=== PATIENT | male | born 1940 | race Caucasian/White ===

== ENCOUNTER 2016-10-06 17:10 | Outpatient (CLI) | payer MEDICARE, OTHER | END 2016-10-06 17:11 | disposition critical access hospital (66) | DX: T14.90 Injury, unspecified (principal); W01.0XXA Fall on same level from slipping, tripping and stumbling without subsequent striking against object, initial encounter; Y93.01 Activity, walking, marching and hiking; Y92.480 Sidewalk as the place of occurrence of the external cause | CPT/HCPCS: A0425; A0429 ==

== ENCOUNTER 2016-10-06 17:30 | Emergency (ER) | payer MEDICARE, OTHER ==
[2016-10-06] MEDS ORDERED: TETANUS/DIPHTHERIA/PERTUSSIS 0.5 ML SYRINGE IM ONE ×2 (17:36→17:49)
== END 2016-10-06 19:41 | disposition home or self-care (01) ==
DX: S06.6X0A Traumatic subarachnoid hemorrhage without loss of consciousness, initial encounter (principal); S00.81XA Abrasion of other part of head, initial encounter; S60.221A Contusion of right hand, initial encounter; S60.511A Abrasion of right hand, initial encounter; W01.0XXA Fall on same level from slipping, tripping and stumbling without subsequent striking against object, initial encounter; Y93.01 Activity, walking, marching and hiking; Y92.480 Sidewalk as the place of occurrence of the external cause; Y99.8 Other external cause status; Z23 Encounter for immunization; F03.90 Unspecified dementia, unspecified severity, without behavioral disturbance, psychotic disturbance, mood disturbance, and anxiety; Z79.82 Long term (current) use of aspirin

== ENCOUNTER 2016-10-09 13:18 | Emergency (ER) | payer MEDICARE, OTHER ==
[2016-10-09] MEDS ORDERED: HYDROcod/ACETAM 5/325 MG TABLET PO STA (14:13)
[2016-10-09] MEDS ORDERED: HYDROcod/ACETAM 5/325 MG TABLET ONE (14:16)
== END 2016-10-09 15:58 | disposition home or self-care (01) ==
DX: S22.41XA Multiple fractures of ribs, right side, initial encounter for closed fracture (principal); W18.30XA Fall on same level, unspecified, initial encounter; M19.041 Primary osteoarthritis, right hand; F03.90 Unspecified dementia, unspecified severity, without behavioral disturbance, psychotic disturbance, mood disturbance, and anxiety; I10 Essential (primary) hypertension; E11.9 Type 2 diabetes mellitus without complications; Z79.84 Long term (current) use of oral hypoglycemic drugs; Z79.82 Long term (current) use of aspirin
CPT/HCPCS: 71101; 73130; 99283; A9270

== ENCOUNTER 2016-11-21 13:32 | Outpatient (CLI) | payer MEDICARE, OTHER | END 2016-11-21 13:33 | disposition home or self-care (01) | DX: R05 Cough (principal); R06.2 Wheezing; R50.9 Fever, unspecified ==

== ENCOUNTER 2017-11-14 14:56 | Outpatient (CLI) | payer MEDICARE, OTHER ==
--- NOTE | 2017-11-15 13:13 | XRAY Report ---
THREE VIEW LEFT ANKLE: 11/14/2017 CLINICAL INDICATION: Sprain, pain. FINDINGS: AP, lateral, and oblique views of the left ankle demonstrate soft tissue swelling. There is no evidence of acute fracture. Degenerative changes are present, with plantar and posterior calcaneal spurring. Vascular calcifications are noted. IMPRESSION: OSTEOARTHRITIS AND SOFT TISSUE SWELLING. NO EVIDENCE OF ACUTE FRACTURE. TD: 11/15/2017 13:12
== END 2017-11-14 14:57 | disposition home or self-care (01) ==
LOC: DI.N 14:56
PROVIDERS: ATTEND Internal Medicine
DX: S93.402A Sprain of unspecified ligament of left ankle, initial encounter (principal); M19.072 Primary osteoarthritis, left ankle and foot

== ENCOUNTER 2019-11-18 11:20 | Outpatient (CLI) | payer MEDICARE, OTHER ==
--- NOTE | 2019-11-18 18:46 | CONSULTATION NOTE ---
Palliative Care Consultation - Referral Referring Provider: Dr. Saeed Time of Visit: 8263-0135 Referral setting: Assisted living Referral Reason: General decline/Advanced Care Planning - Information Sources Records reviewed: Previous records reviewed History/Review of Systems obtained from: Family (spouse/DPOA Katerina), Caregiver, Nursing Exam limitations: Clinical condition (Advanced dementia) - History of Present Illness Brief History of Present Illness: This is a 79-year-old man who was seen and evaluated today for initial palliative care consultation due to recent increase in functional decline, advanced care planning, and symptom management. The patient has a history of Alzheimer's dementia. His /D POA reports that the patient was not receptive of the diagnosis of dementia and therefore there was never really any evidence of him being aware of his cognitive decline. His reports that he was evaluated by geriatric psychology at [facility] where he was formally diagnosed with Alzheimer's dementia. Since that time he has had a steady cognitive decline. However, due to his advanced studies and education he had previously retained knowledge that he was able to cover up his cognitive deficit before it became more apparent. The patient's reports that the patient has had a small subarachnoid hemorrhage in the past few years. She was offered a transfer to [facility] for the patient to have serial monitoring and declined with a goal to focus on comfort. The patient continue to find pleasure and quality of life after that incident. Last week the patient developed right-sided weakness with frequent falls. He sustained a fall on 11/04, 11/06, 11/07. On 11/05 a urine dipstick was performed and was negative for urinary tract infection in house.He is now having difficulty with ambulation and is no longer able to stand and pivot. He is requiring 2 person assistance. He potentially sustained a CVA. The patient's /D POA does not wish to have diagnostic imaging and would like the patient to be comfortable within the facility. He has been in a tilt in space wh eelchair and this has provided additional stability with decreased falls. Nursing staff is also requesting that the patient be evaluated for a hospital bed at this would assist with transferring and prevention of skin breakdown. Since the patient developed right-sided weakness he is not as engaged or talkative as he wants was per staff report. He is requiring increased assistance during meals. No noted coughing or choking episodes during meals or consumption of liquids. Medical/Surgical History - Past Medical History Cardiovascular: reports: Hypertension Respiratory: reports: None Neuro: Alzhiemer's, Other (subarachnoid hemorrhage) Neuro: reports: Alzhiemer's, Dementia Endocrine/Autoimmune: reports: Type 2 diabetes GI: reports: None : reports: Incontinence Musculoskeletal: reports: Osteoarthritis - Substance History Use: Uses substance without health or social issues: NONE Social History - Living Situation Living arrangement: Assisted living Support System: The patient resides in [facility]. The patient's /D PODestini Borges, resides in [place]. The patient and his do not have any children together. The patient's has a daughter from previous of relationship. 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 She retired sooner than she desired due to the patient's cognitive decline due to his Alzheimer's dementia. The patient attended [employer]. He grew up in [place], [place]. He taught calculus classes. He was working on a dissertation but did not finish it. He loves football and jazz. He was not a pet fan but since his got toxins he has come to love them and looks forward to having them visit. Family History - Family History Family History: Mother: , Father: Family History Comment/Other: Sister-Living Medications/Allergies - Medications Home Medications: Ambulatory Orders Medication Instructions Recorded Confirmed Acetaminophen 500 mg PO BID 11/18/19 11/18/19 Acetaminophen 500 mg PO Q6H PRN MDD NTE 3gram 11/18/19 11/18/19 daily Albuterol Sulfate [Albuterol 2 puffs IN Q4H PRN 11/18/19 11/18/19 Sulfate Hfa] Aspirin [Aspirin EC] 81 mg PO DAILY 11/18/19 11/18/19 Fluticasone [Flonase] 1 spray ÁLVARO DAILY 11/18/19 11/18/19 Hydrocodone/Acetaminophen 1 tab PO Q6H PRN 11/18/19 11/18/19 [Hydrocodone-Acetamin 5-325 mg] Lisinopril [Zestril] 40 mg PO DAILY 11/18/19 11/18/19 Loratadine [Allergy Relief] 10 mg PO DAILY PRN 11/18/19 11/18/19 Magnesium Hydroxide [Milk of DAILY PRN 11/18/19 Magnesia] Senna [Senokot] 8.6 mg PO QPM 11/18/19 11/18/19 Sodium Chloride [Saline Nasal 1 spray ÁLVARO BID PRN 11/18/19 11/18/19 [place]] Vitamin D 1,000 unit PO DAILY 11/18/19 hydroCHLOROthiazide 25 mg PO DAILY 11/18/19 11/18/19 [Hydrochlorothiazide] metFORMIN [Glucophage] 500 mg PO BID 11/18/19 11/18/19 - Allergies Allergies/Adverse Reactions: Allergies Allergy/AdvReac Type Severity Reaction Status Date / Time No Known Drug Allergies Allergy Verified 11/18/19 19:04 Review of Systems - Constitutional Constitutional: reports: Fatigue, Weight stable (weight 178.2lb presently; weight 173lb 10/26/2018) - Eyes Eyes: reports: Corrective lenses - Ears, Nose & Throat Ears, Nose & Throat: denies: Hearing loss - Cardiovascular Cardiovascular: denies: Palpitations, Chest pain - Respiratory Respiratory: denies: Cough, SOB at rest - Gastrointestinal Gastrointestinal: reports: Constipation (intermittent responds to MOM), Diarrhea, Good appetite. denies: Abdominal pain, Abdominal distention, Vomiting - Genitourinary Genitourinary: reports: Incontinence (intermittent which is recent as the patient has no longer been able to ambulate). denies: Dysuria - Musculoskeletal Musculoskeletal: reports: Muscle weakness, Joint pain, Assistive devices, Transfer issues - Integumentary Integumentary: reports: Dryness - Neurological Neurological: reports: General weakness, Memory problems. denies: Headache - Psychiatric Psychiatric: denies: Behavior disturbances - Endocrine Endocrine: reports: Diabetes type 2 - Hematologic/Lymphatic Hematologic/Lymphatic: denies: Recurrent infections - All Other Systems All Other Systems: reports: Reviewed and negative (ROS limited as patient is a poor historian due to dementia. ROS obtained from caregiver, nursing and .) Physical Exam - Vital Signs Pulse Rate: 58 Respiratory Rate: 16 O2 Saturation: 96 (on RA at rest) Blood Pressure: 141/68 (left wrist cuff) - Physical Exam General Appearance: positive: No acute distress, Alert, Other Eyes Bilateral: positive: PERRL, EOMI, Other (+corrective lenses) ENT: positive: No signs of dehydration Neck: positive: Trachea midline. negative: Lymphadenopathy (R), Lymphadenopathy (L) Cardiovascular: positive: Regular rate & rhythm, No murmur. negative: Systolic murmur Respiratory: positive: No respiratory distress, Breath sounds nml. negative: Wheezes, Rhonchi Abdomen: positive: Non-tender, Soft, Nml bowel sounds, Other (Round) Skin: positive: Dryness (generalized dryness to face and extremities) Extremities: positive: Pedal edema (trace BLE) Neurologic/Psychiatric: positive: Disoriented to place, Disoriented to time, Weakness, Flat affect, Other (noted decreased fundraising coordinator to RUE compared to LUE. Strenght: RUE 3/5; LUE 4/5; RLE 3/5; LLE 4/5. Visible leaning to right side. Facial symmetry symmetric. Patient could not follow commands to evalaute for pronator drift. Was minimally verbal during examination and would stop in his response.). negative: Facial droop Palliative Care - POLST Patient has POLST: Yes POLST Status: DNR, Comfort Measures Pain: Pain unchanged (History of osteoarthritis that responds to acetaminophen. Presently receiving routine acetaminophen for pain that is only to be administered for 3 days.) Anorexia: None Sleep: Sleeps well Constipation: Managed, Intermittent constipation Performance Status: Patient has had a sharp decline in his functional capabilities. He is no longer able to ambulate with his walker. He is no longer able to ambulate. He has di fficulty being able to stand and pivot with staff. He is presently a two-person assist. He is able to self feed if items are hand-held otherwise he requires staff assistance. No change in appetite. Recent frequent falls with no known injury. No coughing during meals. Dependent on staff for hygiene and ADLs. Previously the patient was continent of urine and since his stroke functional decline and right-sided weakness as he is no longer ambulatory he is now intermittently in continent of urine. - Palliative Care Discussion: The patient has had a sharp functional status change in the last week with evidence of right sided weakness on examination, no longer ambulatory, and decreased participation in conversations indicative of possibly likely a CVA. He presently remains on an 81 mg of aspirin. He has a history of a subarachnoid hemorrhage that was evident on imaging after he sustained a fall with head injury. Since he has been utilizing a tilt in space wheelchair that was loaned to him he has had resolution of his falls and increased comfort. Nursing staff is requesting evaluation for hospital bed and the patient to have a tilt in space wheelchair. Upon discussion with the patient's /D POA, Katerina given the clinical findings she is in agreement that the patient most likely suffered a CVA and she wishes to focus on comfort as much as possible. She does not wish to have the patient transported out to hospital for evaluation as this would lead to distress for the patient. As, Katerina is presently out of state and not able to travel due to the [place] virus pandemic this acute change has been difficult for her as she has not been able to come and be directly at the patient's side. She is looking forward to face timing the patient on Monday with the facility staff so that way she may see the patient since she cannot be present physically. She last saw the patient in March. Given history history of osteoarthritis she would like to have acetaminophen scheduled so the patient is not having any discomfort. Reviewed POLST with /Tony BARAJAS and no changes were made from 2017 patient to remain DN AR, comfort measures, antibiotic use with comfort as goal, no artificial nutrition by tube. Reviewed with /D POA given the patient's recent functional decline will see where he lands if he is able to rebound some of his functional status as his changes are still presently acute. Impression and Recommendations - Palliative Care Impression: This is a 79-year-old gentleman with a history of advanced Alzheimer's disease, hypertension, hyperlipidemia, with acute functional loss with right-sided weakness most likely indicative of a CVA. Patient remains on antiplatelet therapy 81 mg of aspirin daily. Goals at this time her main to focus on comfort. Palliative care to continue to provide pain and symptom management, exploration of goals of care, and anticipatory guidance. Recommendations/Counseling Done: 1. Right-sided weakness with functional decline. Patient most likely sustained a CVA with residual right-sided weakness and poor truncal stability. Unclear if he will have some improvement to baseline functional status. /D POA wishes to focus on comfort and does not wish to have any diagnostic imaging or int erventions. Patient is nonambulatory and is wheelchair dependent and is a 2 person assist for transfers with poor truncal stability. He would benefit from a tilt in space wheelchair and hospital bed with a face to face provided as noted below. 2. Hyperlipidemia. Reviewed primary prevention of atherosclerosis with time to benefit vs life expenctancy vs medication side effects with /DPOA, Katerina at length. Given the patient's age and co-morbidities would recommend discontinuation of statin therapy given the time to see the benefit of statin therapy and /DPOA in agreement for discontinuation of atorvastatin. 3. Alzheimer's Dementia. Chronic. Progressive. Supportive Care. Fall precautions. No behavioral concerns reported by staff. Presently on donepezil for over 6years with no noted change in slowly of cognitive decline reported by . Reviewed benefit vs burden of donepezil and after review will discontinue donepezil. D/c donepezil and start donepezil 5mg daily x 7 days then every other day x 7 days then discontinue for gradual dose reduction before discontinuation to limit side effects. Given the patient's dementia and chronic co- morbidities, a gradual decline is expected. 4. Osteoarthritis. Presently denies pain but is on standing acetaminophen. D/c present acetaminophen orders on record. Start acetaminophen 500mg BID and 500mg every 6 hours as needed for pain not to exceed 3gram daily from all sources. CTM. 5. Constipation. Start senna 8.6mg nightly and hold for loose stools. 6. Advanced care planning. POLST is DNR and comfort care with focus on quality of life. Reviewed medications with /DPOA and to discontinue fish oil and vitamin C supplementation to reduce pill burden. Palliative care to continue to provide support for patient and family as it is not feasible for the patient to leave their present setting. Face to Face: Patient requires a tilt in space wheelchair as he is no longer ambulatory and dependent for all transfers. He is a two person assist. He is unable to reposition in bed or in the wheelchair and requires repositioning by staff. He is wheelchair bound and unable to self-propel. He has poor truncal support and is leaning to the right side. He requires a tilt in space wheelchair with cushion for truncal stability, reducing fall risk, reduction of risk of skin breakdown and to aid in improving the patient's ADLs. Patient requires frequent body positioning due to history of CVA and is not feasible with an ordinary bed and requires a hospital bed. Time Spent: CPT 21330 Plan of care reviewed with nursing staff. Plan of care reviewed at length with /D JENN Borges (contact number [phone]), palliative care philosophy, care coordination, review of medications with dose and side effects, goals of care and provided anticipatory guidance. disclaimer: The chart note was formulated using voice recognition technology and unfortunately sound alike errors may occur.
== END 2019-11-18 11:21 | disposition home or self-care (01) ==
LOC: PC 11:20
PROVIDERS: ATTEND Nurse Practitioner Family
DX: Z51.5 Encounter for palliative care (principal); G30.9 Alzheimer's disease, unspecified; F02.80 Dementia in other diseases classified elsewhere, unspecified severity, without behavioral disturbance, psychotic disturbance, mood disturbance, and anxiety; M62.81 Muscle weakness (generalized); R41.89 Other symptoms and signs involving cognitive functions and awareness; R32 Unspecified urinary incontinence; K59.00 Constipation, unspecified; E11.9 Type 2 diabetes mellitus without complications; M19.90 Unspecified osteoarthritis, unspecified site; E78.5 Hyperlipidemia, unspecified; Z79.899 Other long term (current) drug therapy; Z79.84 Long term (current) use of oral hypoglycemic drugs; Z79.82 Long term (current) use of aspirin; Z87.820 Personal history of traumatic brain injury; Z99.3 Dependence on wheelchair; Z91.81 History of falling; Z66 Do not resuscitate

== ENCOUNTER 2019-12-20 11:50 | Outpatient (CLI) | payer MEDICARE, OTHER ==
--- NOTE | 2019-12-20 16:58 | CONSULTATION NOTE ---
Palliative Care Follow Up - Referral Referring Provider: Dr. Saeed Time of Visit: 4292-1552 Referral setting: Assisted living Referral Reason: Dementia/Weakness - Information Sources Records reviewed: Previous records reviewed History/Review of Systems obtained from: Patient, Family (spouse/ROSA Borges via phone), Caregiver, Nursing Exam limitations: Clinical condition (Advanced dementia) - History of Present Illness Update Brief HPI Update: This is a 79-year-old gentleman who was seen in follow-up today at [facility] due to generalized weakness and Alzheimer's dementia. The patient has had generalized weakness specifically to the right side since October 2019. He has a history of having a subarachnoid hemorrhage in the last several years. He potentially sustained a CVA that has resulted in functional deficits. He is no longer ambulatory. He is presently in a new tilt in space wheelchair that was obtained for him and has been doing quite well on this. This has decreased his number of falls since the use of the specific wheelchair. He has sustained 2 falls one on 12/01 in an assisted fall on 12/14 that resulted in a small skin tear. He continues to require assistance during meals and is typically being fed. No noted coughing or choking episodes during meals or consumption of liquids. Staff report that he eats everything that he is offered during his meals and he does have adapted devices to his utensils in the attempt to encourage him to feed himself. He has had a weight loss trend from 185lb to 175.6lb presently. His reports that when he was exercising and had a healthy diet several years ago his optimal weight was appx 150lb. On last evaluation the patient was started on acetaminophen 500 mg routinely for pain related to osteoarthritis.Patient has tolerated this well and there has been no physical demonstration of discomfort per staff report. When last evaluation the patient had evidence of constipation without routine bowel movements. He was initiated on senna daily and is typically defecating every 2 to 3 days. The patient himself denies any nausea, vomiting, or abdominal pain. Patient has a history of Alzheimer's dementia, osteoarthritis, constipation, subarachnoid hemorrhage, hypertension, type 2 diabetes, urinary incontinence. Social History - Living Situation Living arrangement: Assisted living Support System: The patient resides in [facility]. The patient's /D JENN Borges, resides in [place]. The patient and his do not have any children together. The patient and his have been for 29 years. 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 He loves their dachshunds and enjoys when they visit. Medications/Allergies - Medications Home Medications: Ambulatory Orders Medication Instructions Recorded Confirmed Acetaminophen 500 mg PO BID 11/18/19 11/18/19 Acetaminophen 500 mg PO Q6H PRN MDD NTE 3gram 11/18/19 11/18/19 daily Albuterol Sulfate [Albuterol 2 puffs IN Q4H PRN 11/18/19 11/18/19 Sulfate Hfa] Aspirin [Aspirin EC] 81 mg PO DAILY 11/18/19 11/18/19 Fluticasone [Flonase] 1 spray ÁLVARO DAILY 11/18/19 11/18/19 Hydrocodone/Acetaminophen 1 tab PO Q6H PRN 11/18/19 11/18/19 [Hydrocodone-Acetamin 5-325 mg] Lisinopril [Zestril] 40 mg PO DAILY 11/18/19 11/18/19 Loratadine [Allergy Relief] 10 mg PO DAILY PRN 11/18/19 11/18/19 Magnesium Hydroxide [Milk of DAILY PRN 11/18/19 Magnesia] Senna [Senokot] 8.6 mg PO QPM 11/18/19 11/18/19 Sodium Chloride [Saline Nasal 1 spray ÁLVARO BID PRN 11/18/19 11/18/19 [place]] Vitamin D 1,000 unit PO DAILY 11/18/19 hydroCHLOROthiazide 25 mg PO DAILY 11/18/19 11/18/19 [Hydrochlorothiazide] metFORMIN [Glucophage] 500 mg PO BID 11/18/19 11/18/19 - Allergies Allergies/Adverse Reactions: Allergies Allergy/AdvReac Type Severity Reaction Status Date / Time No Known Drug Allergies Allergy Verified 11/18/19 19:04 Review of Systems - Constitutional Constitutional: reports: Weight loss (weight 175.6lb). denies: Fever - Eyes Eyes: reports: Corrective lenses - Ears, Nose & Throat Ears, Nose & Throat: denies: Hearing loss - Cardiovascular Cardiovascular: denies: Chest pain - Respiratory Respiratory: denies: Cough, Wheezing - Gastrointestinal Gastrointestinal: reports: Constipation, Good appetite. denies: Abdominal pain, Diarrhea, Vomiting - Genitourinary Genitourinary: reports: Incontinence. denies: Dysuria - Musculoskeletal Musculoskeletal: reports: Assistive devices, Transfer issues. denies: Joint pain - Integumentary Integumentary: reports: Other (scab to right elbow) - Neurological Neurological: reports: General weakness, Memory problems - Psychiatric Psychiatric: denies: Behavior disturbances - Endocrine Endocrine: reports: Diabetes type 2 - All Other Systems All Other Systems: reports: Reviewed and negative (ROS limited as patient is a poor historian due to dementia. ROS obtained from caregiver and nursing staff) Physical Exam - Vital Signs Temperature: 36.6 C Pulse Rate: 67 O2 Saturation: 94 (on RA) Blood Pressure: 148/83 (left wrist cuff) - Physical Exam General Appearance: positive: No acute distress, Alert, Other (sitting up OOB in tilt in space wheelchair that appears to fit him quite well and posture is upright) Eyes Bilateral: positive: Other (+corrective lenses) ENT: positive: No signs of dehydration Neck: positive: No JVD, Trachea midline Cardiovascular: positive: Regular rate & rhythm, No murmur Respiratory: positive: No respiratory distress, Breath sounds nml Abdomen: positive: Non-tender, Soft, Nml bowel sounds, Obese, Other (bladder nondistended to palpation) Skin: positive: Other (scab to right elbow--resolving) Extremities: positive: Pedal edema (trace BLE edema) Neurologic/Psychiatric: positive: Disoriented to place, Disoriented to time, Weakness (noted more to the right side; has facial symmetry; some word finding difficulty noted), Flat affect. negative: Depressed mood/affect Palliative Care - POLST Patient has POLST: Yes POLST Status: DNR, Comfort Measures Pain: No pain (on routine tylenol for OA pain) Nausea: None Sleep: Sleeps well Constipation: Yes, Managed Performance Status: Patient is no longer Able to ambulate and uses a tilt in space wheelchair. He has poor truncal stability therefore requiring the tilt in space wheelchair. He has noted weakness more specifically on the right side. He is a two-person assist. He is able to self feed if items are hand-held but otherwise he requires staff assistance despite adaptive utensils. Dependent on staff for hygiene and all ADLs. Incontinent of urine. Nhan Index: * Population: senior care adults aged 65 and older * Outcome: 6 month survival Risk calculators cannot predict the future for any one individual. Risk calculators give an estimate of how many people with similar risk factors will live and , but they cannot identify who will live and who will . Risk of 6 month mortality 28% The index was developed and internally validated in [id number] prison residents (49% of subjects were between 80 and 90 years, 23% were male, 84% were white). The index was externally validated in 606 prison residents with advanced dementia in 21 nursing homes in [place], [place] between 2006 and 2008 (39% were 85 and younger, 82% female) Discrimination: This risk calculator sorts patients who from patients who lived correctly 67% of the time (c- statistic, 95% CI, 0.62-0.72). - Palliative Care Discussion: Patient has had a recent sharp functional status change with decline in October 2019 likely related to an event such as a CVA. The patient himself does have a history of a subarachnoid hemorrhage during. He is now in a different tilt in space wheelchair that appears to fit him adequately and he is comfortable with proper truncal support and is no longer leaning to his right side. The patient continues to have a good oral intake despite a noted weight loss which could potentially be attributed to some mild lower extremity edema with some fluctuations in that as well as progression of his dementia. The patient is presently on routine acetaminophen and has had no evidence of discomfort or distress reported by the staff and has tolerated this well. The patient's /DPOA wishes to focus on comfort as much as possible Impression and Recommendations - Palliative Care Impression: This is a 79-year-old gentleman with a history advanced Alzheimer's disease, hypertension, hyperlipidemia with a recent sharp functional decline indicative of an acute event such as a CVA. Patient has a history of osteoarthritis and any joint complaints are controlled with routine acetaminophen. Palliative care to continue to provide pain and symptom management, anticipatory guidance with a focus on comfort level of care. Recommendations/Counseling Done: 1. Weight loss. Weight presently 175.6lb. Some of the reported weight loss may be attributable to fluctuations in lower extremity edema. Patient presently only has trace amounts of lower extremity edema on examination. He continues on HCTZ daily. Request that meal monitoring be performed with documentation of percent consumed. Continue weekly weights to monitor weight trends. 2. Type 2 diabetes mellitus. Last hemoglobin A1c not available. Patient continues with a robust appetite that requires assistance during mealtimes. Continue metformin 500 mg twice daily. Consider dose reduction of metformin if patient has a decline in oral intake. Consider obtainment of hemoglobin A1c at next follow-up. 3. Functional decline with generalized weakness. 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 Goal is to focus on comfort measures. Patient is nonambulatory and is wheelchair dependent. He has had benefit from a tilt in space wheelchair for truncal stability and to be able to have social interactions with in the common space of the facility and adjustments during mealtimes. 4. Osteoarthritis. Patient denies any reports of acute pain. Continue acetaminophen 500 mg twice daily 5 mg every 6 hours as needed for pain not to exceed 3 g daily from all sources. Continue to monitor. 5. Alzheimer's dementia. Chronic. Progressive. Supportive care. Fall precautions. No evidence of aspiration on examination during lunchtime today. No behavioral concerns reported by staff. Has been tapered off donepezil with no change in behaviors reported by staff. Given the patient's dementia and chronic comorbidities a gradual decline as expected. 6. Constipation. Improved. Continue senna 8.6mg nightly as ordered. No recent use of MOM. Monitor bowel regimen and adjust as needed. 7. HTN with BLE edema. No cardiac awareness. Continue HCTZ and lisinopril as ordered. Continue ASA 81mg daily for cardiac prophylaxis. Continue to monitor BP trends and adjust antihypertensive medications as needed. 8. Advanced Care Planning. POLST DNAR with comfort measures. Goal per /DPOA is to focus on quality of life. Time Spent: CPT 21113 Plan of care reviewed with nursing staff. Plan of care reviewed at length with /D JENN Borges ([phone] (review of present clinical status, goals of care and provided anticipatory guidance. Disclaimer: The chart note was formulated using voice recognition technology and unfortunately sound alike errors may occur.
== END 2019-12-20 11:51 | disposition home or self-care (01) ==
LOC: PC 11:50
PROVIDERS: ATTEND Nurse Practitioner Family
DX: Z51.5 Encounter for palliative care (principal); R53.1 Weakness; M19.90 Unspecified osteoarthritis, unspecified site; K59.00 Constipation, unspecified; R63.4 Abnormal weight loss; G30.9 Alzheimer's disease, unspecified; F02.80 Dementia in other diseases classified elsewhere, unspecified severity, without behavioral disturbance, psychotic disturbance, mood disturbance, and anxiety; R32 Unspecified urinary incontinence; R60.0 Localized edema; I10 Essential (primary) hypertension; E11.9 Type 2 diabetes mellitus without complications; Z79.899 Other long term (current) drug therapy; Z79.82 Long term (current) use of aspirin; Z79.84 Long term (current) use of oral hypoglycemic drugs; Z86.79 Personal history of other diseases of the circulatory system; Z99.3 Dependence on wheelchair; Z66 Do not resuscitate

== ENCOUNTER 2020-02-06 10:30 | Outpatient (CLI) | payer MEDICARE, OTHER ==
--- NOTE | 2020-02-06 13:45 | CONSULTATION NOTE ---
Palliative Care Follow Up - Referral Referring Provider: Dr. Gabriele Saeed Time of Visit: [id number] Referral setting: Assisted living Referral Reason: Change in mental status/Dementia - Information Sources Records reviewed: Previous records reviewed History/Review of Systems obtained from: Patient, Caregiver, Nursing Exam limitations: Clinical condition (Advanced dementia.) - History of Present Illness Update Brief HPI Update: This is a 79-year-old gentleman who was seen in follow-up today at [facility] memory care unit due to recent altered mental status this week, and follow-up of osteoarthritic pain and Alzheimer's dementia. On 02/03/2020 at the patient sustained and nonresponsive episode and was able to be aroused through a sternal rub. He was drowsy for some time during that day and eventually returned back to baseline. On the initial event the patient was noted to have some increased difficulty with his left side. He has had right- sided weakness since the spring 2019 potentially due to a CVA. The patient has a history of a subarachnoid hemorrhage in the past several years. Today the facility staff reports that the patient is back to baseline. He remains afebrile. He is on routine vital signs at the present time for monitoring with blood pressure range 131-132/67-79. He presently remains on aspirin 81 mg daily. The patient is presently on acetaminophen 500 mg twice daily for pain related to his osteoarthritis. He has tolerated this well. Staff deny reports of any noted increased pain. Patient is seen out of bed and tilt in space wheelchair in the common area. He is easily engaged demonstrating no signs or symptoms of distress. Patient has a history of Alzheimer's dementia, osteoarthritis, constipation, hypertension, diabetes mellitus type 2, urinary incontinence, subarachnoid hemorrhage. Social History - Living Situation Living arrangement: Assisted living Support System: Patient resident memory care unit. The patient's /D ALLYSONKaterina Georges resides in [place]. The patient and his do not have any children together. 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 The patient and his have been for 29 years. Katerina is a retired ICU nurse. Next contact number is [phone]. Medications/Allergies - Medications Home Medications: Ambulatory Orders Medication Instructions Recorded Confirmed Acetaminophen 500 mg PO BID 11/18/19 11/18/19 Acetaminophen 500 mg PO Q6H PRN MDD NTE 3gram 11/18/19 11/18/19 daily Albuterol Sulfate [Albuterol 2 puffs IN Q4H PRN 11/18/19 11/18/19 Sulfate Hfa] Aspirin [Aspirin EC] 81 mg PO DAILY 11/18/19 11/18/19 Fluticasone [Flonase] 1 spray ÁLVARO DAILY 11/18/19 11/18/19 Hydrocodone/Acetaminophen 1 tab PO Q6H PRN 11/18/19 11/18/19 [Hydrocodone-Acetamin 5-325 mg] Lisinopril [Zestril] 40 mg PO DAILY 11/18/19 11/18/19 Loratadine [Allergy Relief] 10 mg PO DAILY PRN 11/18/19 11/18/19 Magnesium Hydroxide [Milk of DAILY PRN 11/18/19 Magnesia] Senna [Senokot] 8.6 mg PO QPM 11/18/19 11/18/19 Sodium Chloride [Saline Nasal 1 spray ÁLVARO BID PRN 11/18/19 11/18/19 [place]] Vitamin D 1,000 unit PO DAILY 11/18/19 hydroCHLOROthiazide 25 mg PO DAILY 11/18/19 11/18/19 [Hydrochlorothiazide] metFORMIN [Glucophage] 500 mg PO BID 11/18/19 11/18/19 Bisacodyl Supp [Dulcolax Supp] 10 mg TN Q72H PRN 12/25/19 12/25/19 polyethylene glycoL 3350 [Miralax] 17 g PO DAILY 12/25/19 12/25/19 - Allergies Allergies/Adverse Reactions: Allergies Allergy/AdvReac Type Severity Reaction Status Date / Time No Known Drug Allergies Allergy Verified 11/18/19 19:04 Review of Systems - Constitutional Constitutional: denies: Fever, Poor appetite - Eyes Eyes: reports: Corrective lenses - Ears, Nose & Throat Ears, Nose & Throat: denies: Hearing loss - Cardiovascular Cardiovascular: denies: Palpitations, Chest pain - Respiratory Respiratory: denies: Cough, SOB at rest - Gastrointestinal Gastrointestinal: reports: Constipation (controlled presently), Good appetite. denies: Abdominal pain, Abdominal distention, Diarrhea - Genitourinary Genitourinary: reports: Incontinence. denies: Dysuria - Musculoskeletal Musculoskeletal: reports: Muscle weakness, Assistive devices, Transfer issues. denies: Joint pain - Integumentary Integumentary: reports: Dryness - Neurological Neurological: reports: General weakness, Focal weakness (right sided weakness since Spring 2019 and recent left sided weakness that resolved, see HPI for additional details), Memory problems - Psychiatric Psychiatric: denies: Behavior disturbances - Endocrine Endocrine: reports: Diabetes type 2 - All Other Systems All Other Systems: reports: Reviewed and negative (ROS limited as patient is a poor historian due to dementia. ROS obtained from caregiver and family.) Physical Exam - Vital Signs Temperature: 36.6 C Pulse Rate: 62 O2 Saturation: 95 (on RA at rest) Blood Pressure: 125/74 (left wrist cuff) - Physical Exam General Appearance: positive: No acute distress, Alert, Other (OOB in tilt in space wheelchair, well groomed) Eyes Bilateral: positive: Normal inspection, PERRL (appears to be PERRL though difficult for patient to keep his eyes open when light used despite encouragement) ENT: positive: Other (No signs of dehydration) Neck: positive: Trachea midline Cardiovascular: positive: Regular rate & rhythm, No murmur Respiratory: positive: No respiratory distress, Breath sounds nml Abdomen: positive: Non-tender, Soft, Nml bowel sounds, Obese Skin: positive: Other (visible skin intact) Extremities: positive: Pedal edema (trace BLE edema) Neurologic/Psychiatric: positive: Disoriented to place, Disoriented to time, Weakness (noted on the right side), Flat affect, Other (+word finding diffculty noted; has facail symmetry; able to follow some simple commands). negative: Facial droop Palliative Care - POLST Patient has POLST: Yes POLST Status: DNR, Comfort Measures Pain: No pain (on routine tylenol for OA pain) Sleep: Sleeps well Constipation: Yes, Managed Performance Status: Patient is nonambulatory and uses a tilt in space wheelchair which has been providing truncal support. He has noted generalized weakness more specifically on the right side. He is a two-person assist. He is able to self feed if items are hand-held otherwise he requires staff assistance despite adaptive utensils. Dependent on staff for hygiene and all ADLs. Incontinent of urine. F AST 7C - Palliative Care Discussion: Noted on 02/03/2020 the patient had an unresponsive episode with left-sided weakness that has subsequently resolved. Also in the spring 2019 the patient began experiencing a sharp functional status change likely related to an event such as a CVA. Since his most recent unresponsive episode with left-sided weakness resolved he likely sustained a TIA. The patient does have a history of subarachnoid hemorrhage in the remote past. He presently is on aspirin therapy for cardiac protection and stroke prophylaxis. The patient's /D POA, verbalizes understanding in regards to the patient subsequently likely sustained a TIA and this places him at risk for a stroke event. She does not wish for any further interventions and wishes to focus on comfort and quality of life for the patient. Impression and Recommendations - Palliative Care Impression: This is 79-year-old gentleman with a recent unresponsive episode with left sided weakness that has resolved Likely indicative of a TIA. He has had a sharp functional decline in the spring 2019 likely due to acute event such as a CVA. The patient remains on aspirin 81 mg daily. The patient's wishes to focus on quality of life and symptom management given the patient's advanced Alzheimer's disease.Palliative care to continue to provide pain and symptom management, anticipatory guidance with a focus on comfort level care. Recommendations/Counseling Done: 1. TIA. suspect given the history and description of the unresponsive event with left sided weakness that has resolved that the patient likely sustained a TIA. He no longer has any residual neuro deficits from this event. Continue ASA 81mg daily for prophylaxis and in agreement. Goals are to focus on comfort and avoid hospitalization. Continue to monitor. 2. Osteoarthritis. Patient denies reports of acute pain. Continue acetaminophen 5 mg twice daily and 500 mg every 6 hours as needed for pain not to exceed 3 g daily from all sources. Continue to monitor. 3. Right-sided weakness with functional decline. Noted in spring 2019 likely attributable to CVA with residual weakness. Patient's /D POA wishes to focus on comfort measures. Patient has a tilt in space wheelchair for truncal stability that he has benefited from. He is presently nonambulatory and wheelchair dependent. 4.Type 2 diabetes mellitus. No results of hemoglobin A1c available. Patient continues with a robust appetite. Continue metformin 500 mg twice daily. Consider obtainment of hemoglobin A1c on next evaluation. Consider dose reduction of metformin if the patient has a decline in his oral intake. 5. Alzheimer's dementia. Chronic. Progressive. Supportive care. Fall precautions. No reports of dysphasia. Has been tapered off [place] Prill and no longer on disease modifying medications. No behavioral concerns reported by staff. Given the patient's dementia and chronic comorbidities a gradual decline is expected. Time Spent: CPT 56960 Plan of care reviewed with nursing staff. Plan of care reviewed with /D JENN Borges at [phone] regarding patient's clinical status and presentation provided supportive listening, and in agreement with plan of care with a focus on quality of life and comfort measures. Disclaimer: The chart note was formulated using voice recognition technology and unfortunately sound alike errors may occur.
== END 2020-02-06 10:31 | disposition home or self-care (01) ==
LOC: PC 10:30
PROVIDERS: ATTEND Nurse Practitioner Family
DX: Z51.5 Encounter for palliative care (principal); G30.9 Alzheimer's disease, unspecified; F02.81 Dementia in other diseases classified elsewhere, unspecified severity, with behavioral disturbance; M19.90 Unspecified osteoarthritis, unspecified site; E11.9 Type 2 diabetes mellitus without complications; R32 Unspecified urinary incontinence; R53.1 Weakness; Z74.09 Other reduced mobility; Z99.3 Dependence on wheelchair; H54.7 Unspecified visual loss; Z66 Do not resuscitate; Z79.82 Long term (current) use of aspirin; Z79.891 Long term (current) use of opiate analgesic; Z79.84 Long term (current) use of oral hypoglycemic drugs; Z79.899 Other long term (current) drug therapy

== ENCOUNTER 2020-04-21 08:30 | Outpatient (CLI) | payer MEDICARE, OTHER ==
--- NOTE | 2020-04-21 12:39 | CONSULTATION NOTE ---
Palliative Care Follow Up - Referral Referring Provider: Dr. Saeed Time of Visit: 7195-2541 Referral setting: Assisted living Referral Reason: Debility/Alizheimer's dementia/Scalp changes - Information Sources Records reviewed: Previous records reviewed History/Review of Systems obtained from: Patient, Caregiver, Nursing Exam limitations: Clinical condition (Advanced dementia) - History of Present Illness Update Brief HPI Update: This is a 79-year-old gentleman who was seen in follow-up today at [facility] at the request of physical therapy on site for a [id number] for the patient to have a evaluation for an appropriately fitting tilt in space wheelchair and follow-up regarding Alzheimer's dementia and scalp changes. 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 He continues to have residual right-sided weakness. He does have a history of subarachnoid hemorrhage that was sustained in the past several years. He continues on aspirin 81 mg daily. The patient presently is nonambulatory. He requires frequent repositioning and is limited truncal support. He presently has a tilt in space wheelchair that was donated but does not fit him adequately. He is requiring increased assistance by staff as he is no longer able to feed himself. His weight remains stable. No recent falls. The staff noticed increased flakiness to the patient's scalp. He denies any pruritus. His , make reports that the patient has had a problem with this in the past. The patient is seen in a tilt in space wheelchair at the dining table. He is being assisted with breakfast. Easily engaged with no evidence of distress. Patient has a past medical history of Alzheimer's dementia, osteoarthritis, constipation, hypertension, diabetes mellitus type 2, urinary incontinence, subarachnoid hemorrhage, questionable CVA/TIA. Social History - Living Situation Living arrangement: Assisted living Support System: Patient resides in [facility] unit. The patient's /D Katerina BARAJAS resides in [place]. The patient and his do not have any children together. 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 The patient his have been for 29 years. Katerina is a retired ICU nurse. Next contact number is [phone]. Make plans to come and visit the patient at the beginning of April 2020 for a few days. It has been several months since she has seen the patient due to the coronavirus pandemic. Medications/Allergies - Medications Home Medications: Ambulatory Orders Medication Instructions Recorded Confirmed Acetaminophen 500 mg PO BID 11/18/19 11/18/19 Acetaminophen 500 mg PO Q6H PRN MDD NTE 3gram 11/18/19 11/18/19 daily Albuterol Sulfate [Albuterol 2 puffs IN Q4H PRN 11/18/19 11/18/19 Sulfate Hfa] Aspirin [Aspirin EC] 81 mg PO DAILY 11/18/19 11/18/19 Fluticasone [Flonase] 1 spray ÁLVARO DAILY 11/18/19 11/18/19 Hydrocodone/Acetaminophen 1 tab PO Q6H PRN 11/18/19 11/18/19 [Hydrocodone-Acetamin 5-325 mg] Lisinopril [Zestril] 40 mg PO DAILY 11/18/19 11/18/19 Loratadine [Allergy Relief] 10 mg PO DAILY PRN 11/18/19 11/18/19 Magnesium Hydroxide [Milk of DAILY PRN 11/18/19 Magnesia] Senna [Senokot] 8.6 mg PO QPM 11/18/19 11/18/19 Sodium Chloride [Saline Nasal 1 spray ÁLVARO BID PRN 11/18/19 11/18/19 [place]] Vitamin D 1,000 unit PO DAILY 11/18/19 hydroCHLOROthiazide 25 mg PO DAILY 11/18/19 11/18/19 [Hydrochlorothiazide] metFORMIN [Glucophage] 500 mg PO BID 11/18/19 11/18/19 Bisacodyl Supp [Dulcolax Supp] 10 mg NM Q72H PRN 12/25/19 12/25/19 polyethylene glycoL 3350 [Miralax] 17 g PO DAILY 12/25/19 12/25/19 - Allergies Allergies/Adverse Reactions: Allergies Allergy/AdvReac Type Severity Reaction Status Date / Time No Known Drug Allergies Allergy Verified 11/18/19 19:04 Review of Systems - Constitutional Constitutional: reports: Weight stable. denies: Fever - Eyes Eyes: reports: Corrective lenses - Ears, Nose & Throat Ears, Nose & Throat: denies: Hearing loss - Cardiovascular Cardiovascular: denies: Palpitations, Chest pain - Respiratory Respiratory: denies: Cough, SOB at rest - Gastrointestinal Gastrointestinal: reports: Good appetite (requires assistance with meals; intermittently biting his tongue s/p MOLDING MACHINE OPERATOR onsite evaluation). denies: Constipation (controlled), Vomiting - Genitourinary Genitourinary: reports: Incontinence - Musculoskeletal Musculoskeletal: reports: Muscle weakness, Assistive devices, Transfer issues. denies: Joint pain - Integumentary Integumentary: reports: Other (papules noted to forehead and dry, flaky scalp diffuse consistent with seborrheic dermatitis). denies: Pruritis - Neurological Neurological: reports: General weakness, Memory problems - Psychiatric Psychiatric: denies: Behavior disturbances - Endocrine Endocrine: reports: Diabetes type 2 - All Other Systems All Other Systems: reports: Reviewed and negative (Review of systems is limited as patient is a poor historian due to dementia. Review of systems obtained from caregivers and nursing staff.) Physical Exam - Vital Signs Temperature: 36.6 C Pulse Rate: 69 O2 Saturation: 96 (on RA at rest) Blood Pressure: 161/77 (left wrist cuff) - Physical Exam General Appearance: positive: No acute distress, Alert, Other (OOB in tilt in space wheelchair) Eyes Bilateral: positive: Normal inspection ENT: positive: No signs of dehydration Neck: positive: Trachea midline Cardiovascular: positive: Regular rate & rhythm, No murmur Respiratory: positive: No respiratory distress, Breath sounds nml. negative: Rales Abdomen: positive: Non-tender, Soft, Nml bowel sounds, Obese Skin: positive: Other (papules noted to forehead and dry, flakiness to scalp consistent with seborrhiec dermatitis) Extremities: positive: No pedal edema Neurologic/Psychiatric: positive: Disoriented to place, Disoriented to time, Weakness (noted on the right side), Flat affect, Other (+word finding diffculty noted; able to follow some simple commands). negative: Facial droop Palliative Care - POLST Patient has POLST: Yes POLST Status: DNR, Comfort Measures Performance Status: Patient is nonambulatory and uses donated tilt in space wheelchair. He is unable to provide truncal support. Generalized weakness more specifically on the right side. No longer able to self feed and requires staff assistance. Dependent on staff for hygiene and all ADLs. Incontinent of urine. FAST 7C - Palliative Care Discussion: Patient is having difficulty remaining in an upright posture in his wheelchair, no noted weight loss and requires assistance with feeding. A tilt in space wheelchair would improve the patient's positioning, support, and transportation for the patient to participate in activities as well as reduce fall risk and skin breakdown. Goals remain to focus on comfort and quality of life issues with palliative care to continue to provide support until appropriate for hospice. Impression and Recommendations - Palliative Care Impression: This is a 79 year old gentleman with continued functional and cognitive decline due to advanced dementia and likely CVA/TIA, FAST 7C. Goals for focus on comfort. Palliative care to continue to provide support, symptom management and anticipatory guidance with a transition to hospice when appropriate. Recommendations/Counseling Done: 1. Generalized weakness. Secondary to disease state of dementia and possible history of TIA. Patient is nonambulatory and is wheelchair dependent with poor truncal stability. Present tilt in space wheelchair per physical therapy is not an appropriate fit and would benefit from a tilt in space wheelchair properly fitted for him. Please see [id number] provided below. 2.History of TIA and CVA. Continue aspirin 81 mg daily for prophylaxis. Continues with noted right-sided weakness. 3. Seborrheic dermatitis. Noted to the patient's forehead and scalp. Initiate ketoconazole 2% shampoo applied to scalp and forehead twice a week until resolved. 4.Alzheimer's dementia. Chronic. Progressive. Supportive care. Fall precautions. Recent reports of patient biting tongue status post MOLDING MACHINE OPERATOR evaluation on site. No longer on disease modifying agents. No behavioral concerns noted by staff. Continues with a functional and cognitive decline without any noted weight loss. He requires assistance with meals. We will continue to monitor for appropriate transition for hospice services. Given the patient's dementia and chronic morbidities a gradual decline as expected. Face to Face: Patient requires a tilt in space wheelchair as he is no longer ambulatory and dependent for all transfers. He is unable to reposition in bed or in the wheelchair and requires repositioning by staff. He is wheelchair bound and unable to self-propel. He has limited truncal support and right sided weakness. He requires a tilt in space wheelchair for truncal stability, reducing fall risk, reduction of risk of skin breakdown and to aid in improving the patient's ADLs. Time Spent: Total time spent 22 minutes with greater than 50% of this spent in counseling and coordination of care with nursing and caregiver staff, review of pain and symptom management and anticipatory guidance. Contacted patient's , Katerina [phone] regarding recommendations and in agreement. However, she wishes to have LAVELLE Mcgrath Director weigh in regarding moving forward with a tilt in space wheelchair and relayed to Ramila who ag alessandro with fitted tilt in space wheelchair and will f/u with /DPOA. Disclaimer: The chart note was formulated using voice recognition technology and unfortunately sound alike errors may occur.
== END 2020-04-21 08:31 | disposition home or self-care (01) ==
LOC: PC 08:30
PROVIDERS: ATTEND Nurse Practitioner Family
DX: Z51.5 Encounter for palliative care (principal); R53.1 Weakness; G30.9 Alzheimer's disease, unspecified; F02.80 Dementia in other diseases classified elsewhere, unspecified severity, without behavioral disturbance, psychotic disturbance, mood disturbance, and anxiety; I69.351 Hemiplegia and hemiparesis following cerebral infarction affecting right dominant side; L21.9 Seborrheic dermatitis, unspecified; E11.9 Type 2 diabetes mellitus without complications; I10 Essential (primary) hypertension; Z79.84 Long term (current) use of oral hypoglycemic drugs; Z66 Do not resuscitate

== ENCOUNTER 2020-07-08 10:15 | Outpatient (CLI) | payer MEDICARE, OTHER ==
--- NOTE | 2020-07-08 11:31 | PROVIDER PROGRESS NOTE ---
HPI/Interval History - HPI/Interval History This is a 79-year-old gentleman who was seen in follow-up today at [facility] due to skin changes, recent COVID-19 diagnosis, and underlying Alzheimer's dementia with RNConsuelo present via telemedicine. Please see detailed history from [facility] dated 04/21/2020 for further details. The patient was diagnosed with COVID-19 06/25/2020. He was initially febrile at 101 F and diaphoretic. He also had erythematous changes to his right foot and was evaluated by onsite pediatrician/medical doctor who prescribed to 1 week course of doxycycline for potential underlying cellulitis. Nursing reports that the erythema to the right foot has resolved. He has not had any respiratory symptoms affiliated with COVID-19 diagnosis. He has had some fatigue but otherwise maintains his overall baseline. He continues to require assistance during meals and typically will consume the majority of his meals if assisted. The patient developed skin breakdown to his left glute noted on 06/21 measuring 1.7 x 1.7 cm. He is persistently receiving Cavilon advanced skin protectant to the site. Some contributing factors are the patient's incontinence and inability to frequently turn. He has a tilt in space wheelchair and has a pressure reducing cushion. Patient has a history of seborrheic dermatitis to his scalp and forehead and is on ketoconazole shampoo. However, noted today via telemedicine that patient has A rash to bilateral cheeks with noted flakiness consistent with seborrheic dermatitis and would benefit from intervention. Patient is seen out of bed in his tilt in space wheelchair in the common area at the dining table. Water close at hand and accessible. Alert and no evidence of acute distress. Patient has a past medical history of Alzheimer's dementia, osteoarthritis, constipation, hypertension, diabetes mellitus type 2, urinary incontinence, subarachnoid hemorrhage, questionable CVA/TIA, coronavirus 06/2020. Review of Systems - Constitutional Constitutional: reports: Fatigue, Weight loss (weight 155lb). denies: Fever - Eyes Eyes: reports: Corrective lenses - Ears, Nose & Throat Ears, Nose & Throat: denies: Dry mouth - Cardiovascular Cardiovascular: denies: Chest pain - Respiratory Respiratory: denies: Cough, Wheezing - Gastrointestinal Gastrointestinal: reports: Good appetite (with assistance during meals). denies: Vomiting - Genitourinary Genitourinary: reports: Incontinence. denies: Dysuria - Musculoskeletal Musculoskeletal: reports: Assistive devices, Transfer issues - Integumentary Integumentary: reports: Other (skin breakdown left buttock) - Neurological Neurological: reports: General weakness, Memory problems - Psychiatric Psychiatric: denies: Behavior disturbances - Endocrine Endocrine: reports: Diabetes type 2 (on metformin) - All Other Systems All Other Systems: reports: Reviewed and negative (Review of systems is limited as patient is a poor historian due to dementia. Review of systems supplemented by facility RNConsuelo.) Medications/Allergies - Medications Home Medications: Ambulatory Orders Medication Instructions Recorded Confirmed Acetaminophen 500 mg PO BID 11/18/19 07/08/20 Acetaminophen 500 mg PO Q6H PRN MDD NTE 3gram 11/18/19 07/08/20 daily Albuterol Sulfate [Albuterol 2 puffs IN Q4H PRN 11/18/19 07/08/20 Sulfate Hfa] Aspirin [Aspirin EC] 81 mg PO DAILY 11/18/19 07/08/20 Fluticasone [Flonase] 1 spray ÁLVARO DAILY 11/18/19 07/08/20 Hydrocodone/Acetaminophen 1 tab PO Q6H PRN 11/18/19 07/08/20 [Hydrocodone-Acetamin 5-325 mg] Lisinopril [Zestril] 40 mg PO DAILY 11/18/19 07/08/20 Loratadine [Allergy Relief] 10 mg PO DAILY PRN 11/18/19 07/08/20 Magnesium Hydroxide [Milk of DAILY PRN 11/18/19 Magnesia] Senna [Senokot] 8.6 mg PO QPM 11/18/19 07/08/20 Sodium Chloride [Saline Nasal 1 spray ÁLVARO BID PRN 11/18/19 07/08/20 [place]] Vitamin D 1,000 unit PO DAILY 11/18/19 07/08/20 hydroCHLOROthiazide 25 mg PO DAILY 11/18/19 07/08/20 [Hydrochlorothiazide] metFORMIN [Glucophage] 500 mg PO BID 11/18/19 07/08/20 Bisacodyl Supp [Dulcolax Supp] 10 mg CA Q72H PRN 12/25/19 07/08/20 polyethylene glycoL 3350 [Miralax] 17 g PO DAILY 12/25/19 07/08/20 Cavilon Advanced Skin Protect 1 applic TP .TWICE A WEEK 07/08/20 - Allergies Allergies/Adverse Reactions: Allergies Allergy/AdvReac Type Severity Reaction Status Date / Time No Known Drug Allergies Allergy Verified 11/18/19 19:04 Physical Exam - Physical Exam Vital signs 97.2F, 86, 18, 124/71, 95% on RA General: vital signs reviewed, NAD, overweight gentleman in tilt in space wheelchair ENT: no oral secretions noted Eyes: normal inspection Neck:trachea midline CV: no edema Respiratory: no respiratory distress, even respirations, no audible advantageous lung sounds Skin: dry, flaky rash to bilateral cheeks consistent with seborrhiec dermatitis; unable to visualize pressure ulcer to left buttock 2/2 positioning---see nursing notes for full details Neuro: alert, moves all extremities, +word finding difficultly Palliative Care - POLST Patient has POLST: Yes POLST Status: DNR, Comfort Measures Pain: No pain Tiredness/Fatigue: Mild (1-3) Constipation: Yes, Managed Performance Status: FAST 7C - Palliative Care Discussion: The patient has had the misfortune of ailin coronavirus but has been doing overall, quite well. He remains without respiratory symptoms since his initial diagnosis 06/25/2020. The patient's /DPOA ultimately wishes to focus on comfort 20 in the patient's home setting at [facility]. The patient has developed a pressure ulcer to his left buttocks and is presently receiving routine skin care and there has been no progression or evidence of signs or symptoms of infection reported by facility staff. Impression and Recommendations - Palliative Care Impression: This is a 79-year-old gentleman with continued functional and cognitive decline due to advanced dementia, FAS T7 C, recent diagnosis of coronavirus without respiratory symptoms, status post right foot cellulitis and left buttock pressure ulcer. Patient would benefit from further interventions to reduce direct pressure to the developed pressure ulcer. Palliative care to continue to provide support, symptom management, care coordination and anticipatory guid ance with transition to hospice when appropriate. Recommendations/Counseling Done: 1. Espino virus positive without respiratory symptoms. Initial diagnosis on 06/25/2020. Staff continuing to monitor closely with support by facility pediatrician/medical doctor Dr. Bañuelos. Patient appears to have overall returned to his baseline with some noted fatigue. 2. Left buttock pressure ulcer, 06/21/2020, secondary to urinary incontinence and generalized weakness. See nursing notes as unable to visualize today. Continue pressure reducing wheelchair cushion and utilization of tilt in space wheelchair. Recommend that patient return to bed after breakfast to be turned and repositioned every 2 hours avoiding the center until lunch. Between lunch and dinner request that he be repositined in tilt in space wheelchair to reduce pressure and promote healing. Continue incontinence care. Continue cavilon advanced skin protection applied to site two times per week until healed. CTM. 3. Seborrheic dermatitis. Noted to bilateral cheeks. Initiated ketoconazole 2% shampoo applied to affected areas, lather, let soak 5-10 minutes then gently rinse daily on Mon, Mon, Monday for 2 weeks. 4. Alzheimer's Dementia. Chronic. Progressive. Supportive care. Fall precautions. No longer on disease modifying agents. No per [place] concerns reported by staff. Recent noted weight loss likely due to underlying disease progression of dementia as well as espino virus positive status. Continues to require assistance with meals. Patient's wishes to focus on comfort measures. Given the patient's dementia and chronic comorbidities a gradual decline is expected. Time Spent: [facility] [id number] Contacted patient's /Katerina LEE at [phone] updating regarding plan of care and in agreement with recommendations and implementation. Questions answered and addressed. Disclaimer: The chart note was formulated using voice recognition technology and unfortunately sound alike errors may occur. Telehealth Visit - TeleMedicine Visit Referring Provider: Dr. Saeed Visit Type:: TeleHealth Video Call Patient agrees and consents to this telehealth visit type: Yes Patient agrees to have their insurance billed: Yes Time spent:: Iniated 1015 Video type:: Herb Participants:: Other (Facility [facility]) Location of provider:: Office Location of patient:: Assisted Living Provider Statement: I spent 100% on the TeleHealth Video Call with the patient with greater than 50% spent counseling the patient and coordination of care.
== END 2020-07-08 10:16 | disposition home or self-care (01) ==
LOC: PC 10:15
PROVIDERS: ATTEND Nurse Practitioner Family
DX: Z51.5 Encounter for palliative care (principal); U07.1 COVID-19; L89.329 Pressure ulcer of left buttock, unspecified stage; R32 Unspecified urinary incontinence; L21.9 Seborrheic dermatitis, unspecified; G30.9 Alzheimer's disease, unspecified; F02.80 Dementia in other diseases classified elsewhere, unspecified severity, without behavioral disturbance, psychotic disturbance, mood disturbance, and anxiety; I10 Essential (primary) hypertension; E11.9 Type 2 diabetes mellitus without complications; Z79.84 Long term (current) use of oral hypoglycemic drugs; Z66 Do not resuscitate

== ENCOUNTER 2020-09-08 11:40 | Outpatient (CLI) | payer MEDICARE, OTHER ==
--- NOTE | 2020-09-08 14:03 | CONSULTATION NOTE ---
Palliative Care Follow Up - Referral Referring Provider: Dr. Gabriele Saeed Time of Visit: Initiated 1140 Referral setting: Assisted living Referral Reason: Type II DM/Skin breakdown/Dementia - Information Sources Records reviewed: Previous records reviewed History/Review of Systems obtained from: Patient, Nursing Exam limitations: Clinical condition (Advanced dementia) - History of Present Illness Update Brief [facility] Update: This is a 79-year-old gentleman who was seen in follow-up today at [facility] due to Alzheimer's dementia, history of skin breakdown, and diabetes mellitus type 2. Please see detailed history from HPI dated 04/21/2020 for further details. The end of May 2020 the patient developed skin breakdown to his left glutes due to urinary incontinence and his inability to self turn. The patient was initiated on 07/08 after calavine advanced prep to be applied to the site two times a week. He has since transitioned to calazime skin protectant to be applied to buttocks twice a day with resolution of skin breakdown. Staff is also ensuring that the patient is being turned and repositioned every 2 hours. After breakfast he is typically returned to bed for pressure reduction. In between lunch and dinner he remains in his tilt in space wheelchair with frequent repositioning with positive results and again resolution of skin breakdown. The patient has a history of support dermatitis to his scalp and forehead with positive response to ketoconazole shampoo. He no longer has any dermatitis noted to his facial features and therefore will reduce ketoconazole shampoo application for an as needed purpose for future use. He continues to have gradual weight loss with most recent weight 158 pounds on 09/07/2019. He receives assistance from caregivers during mealtime for feeding. He enjoys being off for chocolate sweets. No concerns regarding dysphagia at mealtimes. He does have a history of diabetes mellitus and is presently on Metformin 500 mg twice daily. No recent hemoglobin A1c on file and /DPOA does not recall last hemoglobin A1c. Given the patient's weight loss he may benefit from a reduction of Metformin. No episodes of hypoglycemia reported by facility staff. Patient is seen initially resting in bed with caregivers present. No evidence of acute distress. This LACE WEAVER assisted caregivers in getting patient dressed and set up for lunch. Past Medical History: Patient has a past medical history of Alzheimer's dementia, osteoarthritis, constipation, hypertension, diabetes mellitus type 2, urinary incontinence, subarachnoid hemorrhage, questionable CVA/TIA 2019, coronavirus 06/2020. Social History - Living Situation Living arrangement: Assisted living Support System: Patient resides at [facility]. The patient's /DPOA, Katerina resides in [place]. The patient and his do not have any children together. 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 The patient is been for 29 years and Katerina is a retired ICU nurse. The patient's spouse's contact number is [phone]. The patient and his spouse FaceTime once a week at the facility due to coronavirus restrictions for visiting. Medications/Allergies - Medications Home Medications: Ambulatory Orders Medication Instructions Recorded Confirmed Acetaminophen 500 mg PO BID 11/18/19 07/08/20 Acetaminophen 500 mg PO Q6H PRN MDD NTE 3gram 11/18/19 07/08/20 daily Albuterol Sulfate [Albuterol 2 puffs IN Q4H PRN 11/18/19 07/08/20 Sulfate Hfa] Aspirin [Aspirin EC] 81 mg PO DAILY 11/18/19 07/08/20 Fluticasone [Flonase] 1 spray LÁVARO DAILY 11/18/19 07/08/20 Hydrocodone/Acetaminophen 1 tab PO Q6H PRN 11/18/19 07/08/20 [Hydrocodone-Acetamin 5-325 mg] Loratadine [Allergy Relief] 10 mg PO DAILY PRN 11/18/19 07/08/20 Magnesium Hydroxide [Milk of DAILY PRN 11/18/19 Magnesia] Senna [Senokot] 8.6 mg PO QPM 11/18/19 07/08/20 Sodium Chloride [Saline Nasal 1 spray ÁLVARO BID PRN 11/18/19 07/08/20 [place]] Vitamin D 2,000 unit PO DAILY 11/18/19 07/08/20 hydroCHLOROthiazide 25 mg PO DAILY 11/18/19 07/08/20 [Hydrochlorothiazide] metFORMIN [Glucophage] 500 mg PO BID 11/18/19 07/08/20 Bisacodyl Supp [Dulcolax Supp] 10 mg MD Q72H PRN 12/25/19 07/08/20 polyethylene glycoL 3350 [Miralax] 17 g PO DAILY 12/25/19 07/08/20 Calazime Skin Protectant 1 applic TP BID 09/08/20 - Allergies Allergies/Adverse Reactions: Allergies Allergy/AdvReac Type Severity Reaction Status Date / Time No Known Drug Allergies Allergy Verified 11/18/19 19:04 Review of Systems - Constitutional Constitutional: reports: Fatigue, Weight loss (weight 158lb 09/07/2020). denies: Fever - Eyes Eyes: reports: Corrective lenses - Ears, Nose & Throat Ears, Nose & Throat: reports: Hearing loss - Cardiovascular Cardiovascular: denies: Edema - Respiratory Respiratory: denies: Cough - Gastrointestinal Gastrointestinal: reports: Constipation (controlled with bowel regimen), Good appetite (with assistance during meals). denies: Vomiting - Genitourinary Genitourinary: reports: Incontinence. denies: Dysuria - Musculoskeletal Musculoskeletal: reports: Assistive devices, Transfer issues. denies: Joint pain - Integumentary Integumentary: denies: Other (skin breakdown) - Neurological Neurological: reports: General weakness, Memory problems - Psychiatric Psychiatric: denies: Behavior disturbances - Endocrine Endocrine: reports: Diabetes type 2 (on metformin) - Hematologic/Lymphatic Hematologic/Lymph: denies: Recurrent infections - All Other Systems All Other Systems: reports: Reviewed and negative (Review of systems is limited as patient is a poor historian due to dementia. Review of systems supplemented by facility RNConsuelo.) Physical Exam - Vital Signs Temperature: 36.3 C Pulse Rate: 87 O2 Saturation: 96 (on RA) Blood Pressure: 140/71 - Physical Exam General Appearance: positive: No acute distress, Alert Eyes Bilateral: positive: Normal inspection ENT: positive: No signs of dehydration Neck: positive: Trachea midline Cardiovascular: positive: Regular rate & rhythm, No murmur Respiratory: positive: No respiratory distress, Breath sounds nml. negative: Rales Abdomen: positive: Non-tender, Soft, Nml bowel sounds, Obese Skin: negative: Pressure wound (to b/l heels and buttocks, skin intact) Extremities: positive: No pedal edema Neurologic/Psychiatric: positive: Disoriented to place, Disoriented to time, Weakness (right sided weakness), Flat affect, Other (+word finding diffculty). negative: Facial droop Palliative Care - POLST Patient has POLST: Yes POLST Status: DNR, Comfort Measures Sleep: Sleeps well Constipation: Managed Performance Status: Patient is nonambulatory and uses a tilt in space wheelchair which is has improved truncal support. He has generalized weakness more specifically on the right side. He is a two-person assist with transfers. Requires assistance with feeding during meals. Dependent on staff for hygiene and ADLs. Incontinent of urine. FAS T7 C - Palliative Care Discussion: Patient has had resolution of skin breakdown to his left buttocks with modifications to repositioning between meals by lying down between some meals and having increased repositioning in his tilt in space wheelchair. He continues to have application of skin protectant to his bilateral buttocks. /DPOA is aware that patient is at risk for skin breakdown due to immobility and advanced dementia in the setting of urinary incontinence. The patient continues to have gradual weight loss. He continues on Metformin with no recent hemoglobin A1c on file and given reduction of his weight may benefit from Dose reduction of his Metformin. in agreement for obtainment of CMP and hemoglobin A1c for monitoring and evaluation. Impression and Recommendations - Palliative Care Impression: This is a 79-year-old gentleman with continued functional and cognitive decline due to advanced dementia likely due to CVA/TIA, F AST 7C with weight loss, diabetes mellitus type 2 and hypertension. Given the patient's weight loss would benefit from further evaluation of continuation of Metformin at present dosage. Goals are to remain on comfort. Palliative care to continue right support, symptom management and anticipatory guidance with transition to hospice when appropriate. Recommendations/Counseling Done: 1. Diabetes mellitus type 2. No recent hemoglobin A1c on file upon review. Patient with noted gradual weight loss over the last year presently weighs 158 pounds. Obtain hemoglobin A1c and follow with results as is with noted weight loss may benefit from reduction of Metformin. At the present time, continue Metformin 500 mg twice daily. 2. Hypertension. No cardiac awareness. Blood pressure 140/71 today. Lisinopril was discontinued in June [address] Bañuelos. Continues on HCTZ 25 mg daily. Continue to monitor blood pressure trend if BRANDY inhibitor needs to be reintroduced to optimize blood pressure control given patient's his tory of TIA, CVA and diabetes mellitus type II. Obtain CMP and follow with results. 3. History of TIA and CVA. Continue aspirin 81 mg daily for prophylaxis. Continues with right-sided weakness. 4. Seborrheic dermatitis. Resolved. Prescribed ketoconazole 2% shampoo to apply to affected areas on scalp and cheeks to be applied 3 times a week as needed if symptoms recur. 5. Alzheimer's dementia. Chronic. Progressive. Supportive care. Fall precautions. On no disease modifying agents has previously were discontinued. No behavioral concerns reported by staff. Weight loss due to underlying disease progression of dementia. Continue to have assistance with meals. Patient's /DPOA wishes to focus on comfort measures. Given the patient's dementia, comorbidities and advanced age, a gradual decline is expected. CPT 81610 Plan of care reviewed with facility RNConsuelo with questions addressed. Contacted patient's /DPOA, Katerina at [phone] updating regarding plan of care and in agreement with obtainment of hemoglobin A1c and CMP. Will follow with patient's upon results before proceeding with any medication adjustments. Questions answered and addressed for patient's . Disclaimer: The chart note was formulated using voice recognition technology and unfortunately sound alike errors may occur.
== END 2020-09-08 11:41 | disposition home or self-care (01) ==
LOC: PC 11:40
PROVIDERS: ATTEND Nurse Practitioner Family
DX: Z51.5 Encounter for palliative care (principal); E11.9 Type 2 diabetes mellitus without complications; R63.4 Abnormal weight loss; I10 Essential (primary) hypertension; I69.351 Hemiplegia and hemiparesis following cerebral infarction affecting right dominant side; G30.9 Alzheimer's disease, unspecified; F02.80 Dementia in other diseases classified elsewhere, unspecified severity, without behavioral disturbance, psychotic disturbance, mood disturbance, and anxiety; Z79.84 Long term (current) use of oral hypoglycemic drugs; Z66 Do not resuscitate

== ENCOUNTER 2020-11-27 09:35 | Outpatient (CLI) | payer MEDICARE, OTHER ==
--- NOTE | 2020-11-27 14:56 | CONSULTATION NOTE ---
Palliative Care Follow Up - Referral Referring Provider: MARCO Alberto Time of Visit: Initiated 934 Referral setting: Assisted living Referral Reason: Diabetes Type II/Dementia/Skin concerns - Information Sources Records reviewed: Previous records reviewed History/Review of Systems obtained from: Patient, Nursing (BETH Osorio) Exam limitations: Clinical condition (Advanced Dementia) - History of Present Illness Update Brief HPI Update: This is a 80-year-old gentleman who was seen in follow-up today [facility] due to Alzheimer's dementia, skin breakdown and diabetes mellitus type 2. Please see detailed history from HPI dated 04/21/2020 for further details. The patient presently has developed skin breakdown with initial formation of a blister to his coccxyal and right buttocks. This was noted the end of last month and he was initiated on calazime skin protectant routinely and continued implementation of routine pressure reduction with frequent turning and having the patient return to bed after breakfast. Jo CAMPOS reports to improvement to both sites. The patient has a history of support dermatitis to his scalp, cheeks, and forehead that has previously had positive response to ketoconazole shampoo. No evidence of any dermatitis noted to his facial features to there and he has as needed ketoconazole shampoo for application as needed. The patient's /DPOA Katerina, recently came for a in person visit and requested reduction medications. The patient last had a hemoglobin A1c performed August 2020 at 6.1% and for reduction of pill burden and gradual weight loss Metformin was discontinued in October 2020 with discussion with spouse/DPOA as well as vitamin D supplementation. No concerns reported by facility staff since discontinuation. The patient was also on Flonase routinely however, pharmacy was requesting to transition to another nasal spray and with review with /DPOA she was in agreement for discontinuation. No evidence of allergic rhinitis on evaluation today. The patient continues to require assistance from caregivers during mealtime for feeding. No evidence of dysphagia reported. Most recent weight 163.4 pounds on 11/23. Patient is seen resting on his right side in bed offloading with a pillow. Arousable and no evidence of acute distress. Past Medical History: Has medical history of Alzheimer's dementia, osteoarthritis, constipation, hypertension, diabetes mellitus type 2, urinary incontinence, subarachnoid hemo rrhage, questionable CVA/TIA 2019, coronavirus 06/2020. Social History - Living Situation Living arrangement: Assisted living Medications/Allergies - Medications Home Medications: Ambulatory Orders Medication Instructions Recorded Confirmed Acetaminophen 500 mg PO BID 11/18/19 11/30/20 Acetaminophen 500 mg PO Q6H PRN MDD NTE 3gram 11/18/19 07/08/20 daily Albuterol Sulfate [Albuterol 2 puffs IN Q4H PRN 11/18/19 11/30/20 Sulfate Hfa] Aspirin [Aspirin EC] 81 mg PO DAILY 11/18/19 11/30/20 Hydrocodone/Acetaminophen 1 tab PO Q6H PRN 11/18/19 11/30/20 [Hydrocodone-Acetamin 5-325 mg] Loratadine [Allergy Relief] 10 mg PO DAILY PRN 11/18/19 11/30/20 Magnesium Hydroxide [Milk of DAILY PRN 11/18/19 Magnesia] Senna [Senokot] 8.6 mg PO QPM 11/18/19 07/08/20 Sodium Chloride [Saline Nasal 1 spray ÁLVARO BID PRN 11/18/19 07/08/20 [place]] hydroCHLOROthiazide 25 mg PO DAILY 11/18/19 11/30/20 [Hydrochlorothiazide] Bisacodyl Supp [Dulcolax Supp] 10 mg MA Q72H PRN 12/25/19 11/30/20 polyethylene glycoL 3350 [Miralax] 17 g PO DAILY 12/25/19 11/30/20 Calazime Skin Protectant 1 applic TP BID 09/08/20 - Allergies Allergies/Adverse Reactions: Allergies Allergy/AdvReac Type Severity Reaction Status Date / Time No Known Drug Allergies Allergy Verified 11/30/20 07:17 Review of Systems - Constitutional Constitutional: reports: Weight gain (weight 163.4lb 11/23/2020; weight 158lb 09/07/2020). denies: Fever, Poor appetite - Eyes Eyes: reports: Corrective lenses - Ears, Nose & Throat Ears, Nose & Throat: reports: Hearing loss. denies: Nasal congestion - Cardiovascular Cardiovascular: denies: Edema - Respiratory Respiratory: denies: Cough, Wheezing - Gastrointestinal Gastrointestinal: reports: Constipation (controlled with bowel regimen), Good appetite (with assistance during meals). denies: Vomiting - Genitourinary Genitourinary: reports: Incontinence. denies: Dysuria - Musculoskeletal Musculoskeletal: reports: Assistive devices, Transfer issues. denies: Joint pain - Integumentary Integumentary: reports: Other (skin breakdown to left buttock and coccyx) - Neurological Neurological: reports: General weakness, Memory problems - Psychiatric Psychiatric: denies: Behavior disturbances - Endocrine Endocrine: reports: Diabetes type 2 (metformin discontinued 10/2020 per DPOA/ request with last A1C 6.1% 08/2020) - Hematologic/Lymphatic Hematologic/Lymph: denies: Recurrent infections - All Other Systems All Other Systems: reports: Reviewed and negative (Review of systems is limited as patient is a poor historian due to dementia. Review of systems supplemented by facility BETH Osorio.) Physical Exam - Vital Signs Temperature: 36.6 C Pulse Rate: 57 O2 Saturation: 94 (on RA at rest) Blood Pressure: 152/61 (left wrist) - Physical Exam General Appearance: positive: No acute distress, Alert, Other (resting on right side in bed) Eyes Bilateral: positive: Normal inspection ENT: positive: No signs of dehydration Neck: positive: Trachea midline Cardiovascular: positive: Regular rate & rhythm Respiratory: positive: No respiratory distress, Breath sounds nml Abdomen: positive: Non-tender, Soft, Nml bowel sounds, Obese Skin: positive: Pressure wound (right buttocks appx 0.5cm in size open area with calazime in place without erythema or discharge and open area from where a blister was to coccyx without erythma but difficult to visualize due to calazime) Extremities: positive: No pedal edema Neurologic/Psychiatric: positive: Disoriented to place, Disoriented to time, Weakness, Flat affect, Other (+word finding diffculty) Palliative Care - POLST Patient has POLST: Yes POLST Status: DNR, Comfort Measures Pain: No pain (controlled with acetaminophen 500mg BID scheduled) Sleep: Sleeps well Constipation: Managed Performance Status: FAST 7C - Palliative Care Discussion: The patient has developed a skin breakdown to his right buttocks and coccygeal that is exasperated by his in mobility and is responding to frequent repositioning, offloading and application of callus time skin protectant. Nursing staff is aware to contact PCP or palliative care with any worsening signs or symptoms at the site. The patient's recently had an in person visit which went well per her report and facility staff. The patient's wishes to focus on comfort and has requested medication reduction in the patient's Metformin was recently discontinued after an A1c of 6.1%, no evidence of hypoglycemia, and gradual weight reduction. Results - Lab Results Lab results reviewed: Yes Lab and Imaging Results: 09/15/2020 Hemoglobin A1c 6.1%, sodium 139, potassium unable to obtain, BUN 19, creatinine 0.7, estimated GFR 91, albumin 3.3, alk phos 101, AST 31, ALT 22 Impression and Recommendations - Palliative Care Impression: This is a 80-year-old gentleman with continued functional and cognitive decline due to advanced Alzheimer's dementia, FAS T7C with diabetes mellitus type 2, skin breakdown. The patient has tolerated discontinuation of Metformin with last hemoglobin A1c reported as 6.1% in August 2020. Due to his immobility and urinary incontinence he has developed to locations of skin breakdown to the right buttocks and coccyx and these are improving with frequent repositioning and application of calazime skin protectant. Palliative care to continue to provide support, symptom management and anticipatory guidance with transition to hospice when appropriate. Recommendations/Counseling Done: 1. Diabetes mellitus type 2. No hypoglycemic awareness. . Last HgA1C 6.1% on 08/2020. Given advanced age and co-morbidities at higher risk of hypoglycemia with associated higher morbidity. Goal HgA1C 7-8% given advanced age.Metformin was discontinued October 2020 due to gradual weight reduction and goal to focus on comfort after discussion with patient's /DPOA. CTM. 2. History of TIA and CVA. Continue aspirin 81 mg daily for prophylaxis. Continues with generalized weakness. 3.Pressure ulcers to left coccyxl and right buttocks secondary to urinary incontinence and generalized weakness. Continue pressor reducing wheelchair cushion and utilization of tilt in space wheelchair. Recommend that the patient be turned and repositioned every 2 hours. Continue to offload. Continue incontinence care. Continue calazime cream application twice daily and as needed until healed. Continue to monitor for signs and symptoms of infection. 4.Allergic rhinitis. Flonase was discontinued. No evidence of nasal congestion on examination today. Patient has as needed Claritin available for any signs and symptoms of allergic rhinitis. Continue to monitor. 5. Alzheimer's dementia. Chronic. Progressive. Supportive care. Fall precautions. No longer on disease modifying agents. No behavioral concerns reported by staff. Continues to require assistance with meals. Goal is to focus on comfort per the /DPOA's request. Given the patient's dementia and chronic comorbidities a gradual decline is expected. CPT 50870 Plan of care reviewed with facility BETH Osorio with questions answered and addressed. Disclaimer: The chart note was formulated using voice recognition technology and unfortunately sound alike errors may occur.
== END 2020-11-27 09:36 | disposition home or self-care (01) ==
LOC: PC 09:35
PROVIDERS: ATTEND Nurse Practitioner Family
DX: Z51.5 Encounter for palliative care (principal); E11.9 Type 2 diabetes mellitus without complications; L89.159 Pressure ulcer of sacral region, unspecified stage; L89.319 Pressure ulcer of right buttock, unspecified stage; J30.9 Allergic rhinitis, unspecified; G30.9 Alzheimer's disease, unspecified; F02.80 Dementia in other diseases classified elsewhere, unspecified severity, without behavioral disturbance, psychotic disturbance, mood disturbance, and anxiety; Z86.16 Personal history of COVID-19; Z66 Do not resuscitate

== ENCOUNTER 2021-05-27 15:45 | Outpatient (CLI) | payer MEDICARE, OTHER ==
--- NOTE | 2021-05-27 17:32 | CONSULTATION NOTE ---
Palliative Care Follow Up - Referral Referring Provider: MARCO Alberto Time of Visit: Initiated 1545 Referral setting: Assisted living Referral Reason: Dementia/Constipation/HTN - Information Sources Records reviewed: Previous records reviewed History/Review of Systems obtained from: Nursing ([facility] Fu[facility]) Exam limitations: Clinical condition (Advanced Dementia) - History of Present Illness Update Brief HPI Update: This is a 80-year-old gentleman who was seen in follow-up today at [facility] due to Alzheimer's dementia, hypertension, and constipation. Provider wore N95 mask. Please see detailed history dictated in HPI dated 04/21/2020 for further details. Patient has developed a rash to his chest in March 2021 and was seen by PCP and triamcinolone was administered. He does have a history of support dermatitis to his scalp, cheeks and forehead that had positive response to ketoconazole shampoo. No evidence of dermatitis seen on evaluation today. The patient does have a scab to his left parietal area on his scalp. Patient has been off of Metformin since October 2020 for reduction of pill burden and due to weight loss. Patient has steadily gained weight and presently weighs 183 pounds. No signs or symptoms of hyper or hypoglycemia. The patient continues to receive assistance during mealtimes from facility staff. Presently having bowel movements noted every 2 to 3 days. Presently on MiraLAX 1 capsule daily and senna 1 tablet nightly. Would benefit from dose adjustment of bowel regimen. Facility staff deny any acute concerns. Patient is seen in his tilt in space wheelchair alert, no evidence of acute distress. Past Medical History: Has medical history of Alzheimer's dementia, osteoarthritis, constipation, hypertension, diabetes mellitus type 2, urinary incontinence, subarachnoid hemorrhage, questionable CVA/TIA 2019, coronavirus 06/2020. Social History - Living Situation Living arrangement: Assisted living Support System: Patient resides at [facility] unit. The patient's /DPKAREN, Katerina resides in [place]. The patient and his do not have any children together. 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 The patient's spouse's contact number is [phone]. Medications/Allergies - Medications Home Medications: Ambulatory Orders Medication Instructions Recorded Confirmed Acetaminophen 500 mg PO BID 11/18/19 11/30/20 Acetaminophen 500 mg PO Q6H PRN MDD NTE 3gram 11/18/19 07/08/20 daily Albuterol Sulfate [Albuterol 2 puffs IN Q4H PRN 11/18/19 11/30/20 Sulfate Hfa] Aspirin [Aspirin EC] 81 mg PO DAILY 11/18/19 11/30/20 Hydrocodone/Acetaminophen 1 tab PO Q6H PRN 11/18/19 11/30/20 [Hydrocodone-Acetamin 5-325 mg] Loratadine [Allergy Relief] 10 mg PO DAILY PRN 11/18/19 11/30/20 Magnesium Hydroxide [Milk of DAILY PRN 11/18/19 Magnesia] Senna [Senokot] 8.6 mg PO BID 11/18/19 07/08/20 Sodium Chloride [Saline Nasal 1 spray ÁLVARO BID PRN 11/18/19 07/08/20 [place]] hydroCHLOROthiazide 25 mg PO DAILY 11/18/19 11/30/20 [Hydrochlorothiazide] Bisacodyl Supp [Dulcolax Supp] 10 mg [place] Q72H PRN 12/25/19 11/30/20 polyethylene glycoL 3350 [Miralax] 17 g PO DAILY 12/25/19 11/30/20 Calazime Skin Protectant 1 applic TP BID 09/08/20 Ketoconazole [Nizoral A-D] 1 applic TP .3 TIMES PER WEEK PRN 05/27/21 05/27/21 MDD scalp and face - Allergies Allergies/Adverse Reactions: Allergies Allergy/AdvReac Type Severity Reaction Status Date / Time No Known Drug Allergies Allergy Verified 11/30/20 07:17 Review of Systems - Constitutional Constitutional: reports: Weight gain (weight 183lb 05/2021; weight 163.4lb 11/23/2020; weight 158lb 09/07/2020). denies: Fever, Poor appetite - Eyes Eyes: reports: Corrective lenses - Ears, Nose & Throat Ears, Nose & Throat: reports: Hearing loss. denies: Nasal congestion - Cardiovascular Cardiovascular: denies: Chest pain, Edema - Respiratory Respiratory: denies: Wheezing, Other (dysphagia noted during meals) - Gastrointestinal Gastrointestinal: reports: Constipation (bowel movement every 2-3 days would benefit from titration of bowel regimen), Good appetite (with assistance during meals). denies: Abdominal pain, Vomiting - Genitourinary Genitourinary: reports: Incontinence. denies: Dysuria - Musculoskeletal Musculoskeletal: reports: Assistive devices, Transfer issues. denies: Joint pain - Integumentary Integumentary: reports: Dryness (generalized) - Neurological Neurological: reports: General weakness, Memory problems - Endocrine Endocrine: reports: Diabetes type 2 (metformin discontinued 10/2020 per DPOA/ request with last A1C 6.1% 08/2020) - All Other Systems All Other Systems: reports: Reviewed and negative (Review of systems is limited as patient is a poor historian due to dementia. Review of systems supplemented by facility [facility].) Physical Exam - Vital Signs Temperature: 36.8 C Pulse Rate: 70 O2 Saturation: 95 (on RA) Blood Pressure: 135/70 - Physical Exam General Appearance: positive: No acute distress, Alert, Other (OOB in tilt in space wheelchair) Eyes Bilateral: positive: Normal inspection ENT: positive: No signs of dehydration Neck: positive: Trachea midline Cardiovascular: positive: Regular rate & rhythm Respiratory: positive: No respiratory distress, Breath sounds nml. negative: Wheezes Abdomen: positive: Non-tender, Soft, Nml bowel sounds, Obese Skin: positive: Dryness, Other (scab to left parietal of scalp without discharge) Extremities: positive: No pedal edema Neurologic/Psychiatric: positive: Disoriented to place, Disoriented to time, Weakness, Flat affect, Other (+word finding diffculty) Palliative Care - POLST Patient has POLST: Yes POLST Status: DNR, Comfort Measures Pain: No pain (on acetaminophen 500mg BID) Constipation: Yes, Managed Performance Status: FAST 7C - Palliative Care Discussion: Patient continues to have a slow functional and cognitive decline due to advanced Alzheimer's dementia. Reduction in his medications were made to reduce pill burden in spring 2020 per the patient's spouse/DPOA's request. Spouse wishes to focus on comfort measures. Impression and Recommendations - Palliative Care Impression: This is a 80-year-old gentleman with advanced Alzheimer's dementia, FAS T7 C with constipation, hypertension, and diabetes mellitus type 2. He remains off of Metformin since October 2020. He has had a gradual increase in weight since spring 2020 and appears to be euvolemic. Would benefit from increase of his senna from 1 tablet in the evening to 1 tablet twice a day for bowel regimen. Palliative care to continue provide support, symptom management and anticipatory guidance with transition to hospice when appropriate. Recommendations/Counseling Done: 1. Constipation. Sedentary lifestyle contributing. Increase senna 8.6 mg to 1 tablet twice daily. Continue MiraLAX 17 g daily. Has milk of magnesia and bisacodyl suppository as needed for constipation. Continue to monitor and adjust bowel regimen as needed. 2. Diabetes mellitus type 2. No hypoglycemic awareness. Last hemoglobin A1c 6.1% on 08/2020. Given the patient's advanced age and comorbidities was at higher risk for hypoglycemia with associated higher morbidity and Metformin was discontinued in October 2020 per spouses request/DPOA as a goal remains to focus on comfort. Goal hemoglobin A1c 7 to 8% given the patient's advanced age. Co ntinue to monitor. 3. Hypertension. No cardiac awareness. Lisinopril was discontinued in June 2020. Continues on HCTZ 25 mg daily. Continue to monitor blood pressure trend given patient's history of TIA, CVA and diabetes mellitus type 2. Continue to monitor. 4. Alzheimer's dementia. Chronic. Progressive. Supportive care. Fall precautions. On no disease modifying agents as was previously discontinued. No behavioral concerns reported by staff. Noted weight gain trend and will need to continue to monitor. Sedentary lifestyle contributing to weight gain. Continues to require assistance with meals. Patient's /DPOA previously requested to focus on comfort measures. Given the patient's dementia, comorbidities and advanced age a gradual decline is expected. CPT 51333 Disclaimer: The chart note was formulated using voice recognition technology and unfortunately sound alike errors may occur.
== END 2021-05-27 15:46 | disposition home or self-care (01) ==
LOC: PC 15:45
PROVIDERS: ATTEND Nurse Practitioner Family
DX: Z51.5 Encounter for palliative care (principal); G30.9 Alzheimer's disease, unspecified; F02.80 Dementia in other diseases classified elsewhere, unspecified severity, without behavioral disturbance, psychotic disturbance, mood disturbance, and anxiety; I10 Essential (primary) hypertension; K59.00 Constipation, unspecified; R21 Rash and other nonspecific skin eruption; L30.9 Dermatitis, unspecified; E11.9 Type 2 diabetes mellitus without complications; R32 Unspecified urinary incontinence; Z86.16 Personal history of COVID-19; Z99.3 Dependence on wheelchair; Z66 Do not resuscitate

== ENCOUNTER 2021-08-23 09:00 | Outpatient (CLI) | payer MEDICARE, OTHER ==
--- NOTE | 2021-08-23 11:43 | CONSULTATION NOTE ---
Palliative Care Follow Up - Referral Referring Provider: MARCO Alberto Time of Visit: Initiated 0900 Referral setting: Assisted living Referral Reason: Scalp lesion/HTN/Dementia/Constipation - Information Sources Records reviewed: Previous records reviewed History/Review of Systems obtained from: Patient, Family (spouse/DPOA Katerina via phone), Nursing ([facility]) Exam limitations: Clinical condition (Advanced Dementia) - History of Present Illness Update Brief HPI Update: This is a 80-year-old gentleman who was seen in follow-up today at [facility] due to Alzheimer's dementia, constipation, hypertension, and scalp lesion. Provider wore N95 mask. Please see detailed history dictated in HPI from 04/21/2020 for further details. Patient is nonambulatory and utilizes a tilt in space wheelchair when out of bed. He is now requiring a [place] lift for transfers. Most recent weight 191.4 pounds up from previous weight. He has been off of Metformin since October 2020 for pill reduction and history of weight loss. He continues to have overall a good oral intake. He receives assistance during meals from facility staff. No reports of cough. Patient has a history of constipation and in fall 2020 senna dosage was increased. He is typically having a bowel movement every 2 to 3 days. No reports of nausea or vomiting. Patient has a lesion to his scalp. Per report of facility staff this will wax and wane in its prominence. Patient spouse/DPOA reports that the patient has had a history of scalp skin cancer and was seen by a cinder block mason in [place] for a Mohs procedure in the past. There is no redness surrounding the site or evidence of discharge. Unclear if at times the patient touches the site due to his underlying dementia. Patient is seen out of bed in his tilt in space wheelchair alert having just completed breakfast and no evidence of distress. Past Medical History: Has medical history of Alzheimer's dementia, osteoarthritis, constipation, hypertension, diabetes mellitus type 2, urinary incontinence, subarachnoid hemorrhage, questionable CVA/TIA 2019, coronavirus 06/2020, skin cancer to scalp. +COVID-19 vaccine Social History - Living Situation Living arrangement: Assisted living Support System: Patient resides at [facility] unit. The patient's /DPOA, Katerina resides in [place]. The patient and his do not have any children together. 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 The patient's spouse's contact number is [phone]. Katerina facetimes regularly with the patient. Medications/Allergies - Medications Home Medications: Ambulatory Orders Medication Instructions Recorded Confirmed Acetaminophen 500 mg PO BID 11/18/19 11/30/20 Acetaminophen 500 mg PO Q6H PRN MDD NTE 3gram 11/18/19 07/08/20 daily Albuterol Sulfate [Albuterol 2 puffs IN Q4H PRN 11/18/19 11/30/20 Sulfate Hfa] Aspirin [Aspirin EC] 81 mg PO DAILY 11/18/19 11/30/20 Hydrocodone/Acetaminophen 1 tab PO Q6H PRN 11/18/19 11/30/20 [Hydrocodone-Acetamin 5-325 mg] Loratadine [Allergy Relief] 10 mg PO DAILY PRN 11/18/19 11/30/20 Magnesium Hydroxide [Milk of DAILY PRN 11/18/19 Magnesia] Senna [Senokot] 8.6 mg PO BID 11/18/19 07/08/20 Sodium Chloride [Saline Nasal 1 spray ÁLVARO BID PRN 11/18/19 07/08/20 [place]] hydroCHLOROthiazide 25 mg PO DAILY 11/18/19 11/30/20 [Hydrochlorothiazide] Bisacodyl Supp [Dulcolax Supp] 10 mg [place] Q72H PRN 12/25/19 11/30/20 polyethylene glycoL 3350 [Miralax] 17 g PO DAILY 12/25/19 11/30/20 Calazime Skin Protectant 1 applic TP BID 09/08/20 Ketoconazole [Nizoral A-D] 1 applic TP .3 TIMES PER WEEK PRN 05/27/21 05/27/21 MDD scalp and face - Allergies Allergies/Adverse Reactions: Allergies Allergy/AdvReac Type Severity Reaction Status Date / Time No Known Drug Allergies Allergy Verified 11/30/20 07:17 Review of Systems - Constitutional Constitutional: reports: Weight gain (weight 191.4lb 08/18/2021; weight 183lb 05/2021; weight 163.4lb 11/23/2020; weight 158lb 09/07/2020). denies: Fever, Poor appetite - Eyes Eyes: reports: Corrective lenses - Ears, Nose & Throat Ears, Nose & Throat: reports: Hearing loss. denies: Nasal congestion - Cardiovascular Cardiovascular: denies: Edema - Respiratory Respiratory: denies: Cough - Gastrointestinal Gastrointestinal: reports: Good appetite (with assistance during meals). denies: Abdominal pain, Constipation (bowel movement every 2-3 days see HPI, controlled), Nausea, Vomiting - Genitourinary Genitourinary: reports: Incontinence. denies: Dysuria - Musculoskeletal Musculoskeletal: reports: Assistive devices, Transfer issues. denies: Joint pain - Integumentary Integumentary: reports: Lesions (scalp, see HPI, spouse has noted it increasing in size), Dryness (generalized) - Neurological Neurological: reports: General weakness, Memory problems - Endocrine Endocrine: reports: Diabetes type 2 (metformin discontinued 10/2020 per DPOA/ request with last A1C 6.1% 08/2020) - All Other Systems All Other Systems: reports: Reviewed and negative (Review of systems is limited as patient is a poor historian due to dementia. Review of systems supplemented by facility [facility] and spouse/DPOA Katerina.) Physical Exam - Vital Signs Temperature: 36.9 C Pulse Rate: 58 O2 Saturation: 94 (on RA) Blood Pressure: 146/86 - Physical Exam General Appearance: positive: No acute distress, Alert, Other (OOB in tilt in space wheelchair) Eyes Bilateral: positive: Normal inspection ENT: positive: No signs of dehydration Neck: positive: Trachea midline Cardiovascular: positive: Regular rate & rhythm Respiratory: positive: No respiratory distress, Breath sounds nml Abdomen: positive: Non-tender, Soft, Nml bowel sounds, Obese. negative: Tenderness Skin: positive: Dryness, Other (lesion to left parietal scalp 1cm in size, circular, with raised edges and granulation to base with appearance of basal cell carcinoma.) Extremities: positive: No pedal edema Neurologic/Psychiatric: positive: Disoriented to place, Disoriented to time, Weakness, Flat affect, Other (+word finding diffculty) Palliative Care - POLST Patient has POLST: Yes POLST Status: DNR, Comfort Measures Pain: No pain (on scheduled acetaminophen) Performance Status: Nonambulatory. Requires [place] lift. Incontinent of bowel and bladder.Requires assistance with meals. FAS T7 C - Palliative Care Discussion: Patient has a skin lesion to his left parietal scalp that has grown in size per spouse/DPOA report without evidence of infection. Given the patient's past history of skin cancer to the scalp and nose surgery as well as location and appearance suspicious for basal cell carcinoma. Concern was reviewed at length with the patient spouse today and she does not wish to have the patient sent out for dermatology evaluation and treatment. Weighing benefits versus burdens of monitoring versus utilization of 5-FU topical therapy. Spouse wishes to look into 5-FU topical therapy further and will give palliative care provider decision regarding moving forward with this and then will follow up with PCP regarding management. Impression and Recommendations - Palliative Care Impression: This is a 80-year-old gentleman with advanced Alzheimer's dementia, FAS T7 C with constipation, hypertension, with scalp lesions suspicious for basal cell carcinoma. Constipation is controlled. Lengthy discussion had today with patient spouse regarding interventions that are conservative for basal cell carcinoma. Palliative care to continue provide support, symptom management and anticipatory guidance with transition to hospice when appropriate. Recommendations/Counseling Done: 1. Lesion to scalp, suspicious for basal cell carcinoma. Patient has history of skin cancer and status post Mohs surgery in the past. Spouse does not wish to move forward with dermatology evaluation and interventions. Wish to monitor or provide conservative interventions within the facility environment with a focus on comfort. Discussion regarding 5-FU topical therapy and spouse to weigh benefits versus burdens regarding proceeding forward with this intervention aware that this will not eliminate the cancerous cells. Will request that facility staff monitor site for signs and symptoms of infection moving forward. Spouse/DPOA to contact palliative care regarding decision with 5-FU topical therapy and palliative care will make PCP aware for management and intervention. 2. Constipation. Sedentary lifestyle contributing. Can continue senna 8.6 mg twice daily. Continue MiraLAX 17 g daily. Add milk of magnesia and bisacodyl suppository as needed for constipation. Continue to monitor and adjust bowel regimen as needed. 3. Hypertension. No cardiac awareness. Lisinopril was discontinued in June 2020. Continues on HCTZ 25 mg daily. Continue to monitor blood pressure trend given the patient's history of TIA, CVA and diabetes mellitus type 2. Continue to monitor. 4. Alzheimer's dementia. Chronic. Progressive. Supportive care. Fall precautions. And no disease modifying agents and was previously discontinued. No behavioral concerns reported by staff. Continues to have a weight gain trend and will continue to monitor. Sedentary lifestyle contributing to weight gain. Requires assistance with meals. Now utilizing a [place] lift for transfers. Patient's /DPOA continues to state a desire to focus on comfort measures. Given the patient's history of dementia, comorbidities and advanced age a gradual decline is expected. CPT 99493 Plan of care reviewed with facility [facility]. Updated PCP regarding clinical findings of basal cell carcinoma and will follow-up regarding patient's spouse/DPOA desire regarding conservative measures. Contacted patient's spouse/DPOA Katerina at [phone] and reviewed plan of care with questions answered and addressed and to follow-up regarding decision regarding 5-FU therapy be topically. Disclaimer: The chart note was formulated using voice recognition technology and unfortunately sound alike errors may occur.
== END 2021-08-23 09:01 | disposition home or self-care (01) ==
LOC: PC 09:00
PROVIDERS: ATTEND Nurse Practitioner Family
DX: Z51.5 Encounter for palliative care (principal); L98.9 Disorder of the skin and subcutaneous tissue, unspecified; Z85.828 Personal history of other malignant neoplasm of skin; K59.00 Constipation, unspecified; I10 Essential (primary) hypertension; G30.9 Alzheimer's disease, unspecified; F02.80 Dementia in other diseases classified elsewhere, unspecified severity, without behavioral disturbance, psychotic disturbance, mood disturbance, and anxiety; R63.5 Abnormal weight gain; Z79.899 Other long term (current) drug therapy; Z99.3 Dependence on wheelchair; Z66 Do not resuscitate